=== PATIENT | male | born 1975 | race Caucasian/White ===

== ENCOUNTER 2020-04-06 10:42 | Emergency (ER) | payer MEDICARE ==
[~2020-04-06] VITALS: Ht 175.3 cm; Wt 63.6 kg
[2020-04-06] MEDS ORDERED: iohexol 350MG/ML 100ml bottle IV ONE ×2 (11:12→14:34)
[2020-04-06] MEDS ORDERED: NO HOME MEDS (11:19)
--- NOTE | 2020-04-06 11:19 | NUR ---
Multiple attempts for IV access have been unsuccessful up to this point. chili maker will attempt again so CTA scan can be completed.
[2020-04-06 11:21] LABS: BASOPHILS % (AUTO) 0.7 % (0-1); EOSINOPHILS # (AUTO) 0.3 X10'3 (0-0.9); EOSINOPHILS % (AUTO) 5.1 % (0-6); HEMATOCRIT 46.7 % (42.0-52.0); HEMOGLOBIN 15.9 g/dl (14.0-17.9); LYMPHOCYTES # (AUTO) 1.9 X10'3 (1.1-4.8); LYMPHOCYTES % (AUTO) 38.5 % (21-51); MEAN CORPUSCULAR VOLUME 94.1 FL (78-98); MEAN PLATELET VOLUME 6.2 FL (7.4-10.4); MONOCYTES # (AUTO) 0.5 X10'3 (0-0.9); NEUTROPHILS # (AUTO) 2.2 X10'3 (1.8-7.7); NEUTROPHILS % (AUTO) 44.7 % (42-75); PLATELET COUNT 253 X10'3 (140-440); RED BLOOD COUNT 4.96 X10'6 (4.70-6.10)
[2020-04-06 11:30] LABS: PARTIAL THROMBOPLASTIN TIME 28 SECONDS (22-32)
[2020-04-06 11:31] LABS: ALANINE AMINOTRANSFERASE 22 U/L (12-78); ALBUMIN 4.2 G/DL (3.4-5.0); ALBUMIN/GLOBULIN RATIO 1.6 (1.1-1.5); ALKALINE PHOSPHATASE 55 IU/L (46-116); ANION GAP 9 (8-16); ASPARTATE AMINO TRANSFERASE 12 U/L (10-37); BILIRUBIN,TOTAL 0.7 MG/DL (0.1-1.0); BLOOD UREA NITROGEN 16 MG/DL (7-18); CALCIUM 8.8 MG/DL (8.5-10.1); CHLORIDE 102 MMOL/L (99-107); CREATININE 0.94 MG/DL (0.60-1.10); GLUCOSE 110 MG/DL (70-104); POTASSIUM 4.3 MMOL/L (3.5-5.1); SODIUM 137 MMOL/L (135-145); TOTAL CARBON DIOXIDE 26.2 MMOL/L (24-32); TOTAL PROTEIN 6.9 G/DL (6.4-8.2); eGFR 88 ML/MIN
--- NOTE | 2020-04-06 12:37 | NUR ---
PICC nurse started the IV access, pt is ready for CT scan.
[2020-04-06] MEDS ORDERED: normal saline 1000ML IV soln IVB ONE (14:20)
[2020-04-06 15:33] LABS: CLARITY,URINE SLIGHTLY CLOUDY (Clear); COLOR,URINE YELLOW (Yellow); GLUCOSE, URINE NEGATIVE (Neg); KETONES,URINE NEGATIVE (Neg); LEUKOCYTE ESTERASE ,URINE NEGATIVE (Neg); NITRITES, URINE NEGATIVE (Neg); OCCULT BLOOD,URINE NEGATIVE (Neg); PH,URINE 7.5 (4.8-8.0); PROTEIN,URINE NEGATIVE (Neg)
[2020-04-06 15:34] LABS: UA COLLECTION TYPE URINAL
[2020-04-06 15:38] LABS: AMORPHOUS PHOSPHATES 2+; BACTERIA,URINE NONE SEEN /HPF (Neg); MUCUS STRANDS NONE SEEN /LPF (Neg); RBC,URINE 0-2 /HPF (0-2); SQUAMOUS EPITHELIAL CELL,UR NONE SEEN /LPF (FEW); WBC,URINE NONE SEEN /HPF (0-4)
[2020-04-06 15:48] LABS: URINE AMPHETAMINE SCREEN POSITIVE (Neg); URINE BARBITUATE SCREEN NEGATIVE (Neg); URINE BENZODIAZEPINES SCREEN NEGATIVE (Neg); URINE CANNABINOID SCREEN NEGATIVE (Neg); URINE COCAINE SCREEN NEGATIVE (Neg); URINE METHADONE SCREEN NEGATIVE (Neg); URINE OPIATE SCREEN NEGATIVE (Neg); URINE PHENCYCLIDINE SCREEN NEGATIVE (Neg)
[2020-04-06 15:50] VITALS: BP 131/91
== END 2020-04-06 16:58 | disposition home or self-care (01) ==
LOC: ER 10:43
DX: R42 Dizziness and giddiness (principal); R07.89 Other chest pain; H02.87 Vascular anomalies of eyelid; G89.29 Other chronic pain; Z88.0 Allergy status to penicillin
CPT/HCPCS: 36415; 70496; 70498; 71045; 71275; 76937; 80053; 80305; 81001; 82948; 85025; 85610; 85730; 86885; 86900; 86901; 93005; 93880; 96360; 99285; J7030; Q9967

== ENCOUNTER 2020-06-05 09:50 | Outpatient (CLI) | payer MEDICARE, MEDICAID ==
[2020-06-05] VITALS (18 sets, daily range): BP systolic 105–131; BP diastolic 64–96
[~2020-06-05 09:50] MED LIST: NO HOME MEDS
== END 2020-06-05 23:59 | disposition home or self-care (01) ==
LOC: CARD DIAG 09:50
PROVIDERS: ATTEND Internal Medicine Interventional Cardiology
DX: R42 Dizziness and giddiness (principal)
CPT/HCPCS: 93660

== ENCOUNTER → 2023-02-09 | Outpatient (CLI) | payer MEDICARE, MEDICAID ==
[2023-02-09] VITALS (8 sets, daily range): BP systolic 123–133; BP diastolic 83–96
[~2023-02-09] VITALS: Ht 175.3 cm; Wt 63.5 kg
[~2023-02-09] MED LIST changes: +aminophylline 250mg/10ml inj. IV PRN; +nitroGLYCERIN 0.4mg SUBLingual tab SL PRN; +normal saline 500ml IV soln 500 ML IV ONE; +regadenoson 0.4mg/5ml syringe IV ONE
== END | disposition home or self-care (01) ==
LOC: RAD 08:11
PROVIDERS: ATTEND Internal Medicine Interventional Cardiology
DX: R07.9 Chest pain, unspecified (principal)
CPT/HCPCS: 78451; 93017; A9500; J2785; J7040; J0280

== ENCOUNTER 2023-02-22 15:49 | Emergency (ER) | payer MEDICARE, MEDICAID ==
[~2023-02-22] VITALS: Ht 175.3 cm; Wt 68.2 kg
[~2023-02-22 15:49] MED LIST changes: -aminophylline 250mg/10ml inj. IV PRN; -nitroGLYCERIN 0.4mg SUBLingual tab SL PRN; -normal saline 500ml IV soln 500 ML IV ONE; -regadenoson 0.4mg/5ml syringe IV ONE
[2023-02-22 16:02] VITALS: BP 151/108
[2023-02-22] MEDS ORDERED: LIDOCAINE 2%/EPI 1:100,000 inj. Multi-dose 20 ML VIAL IJ ONE (16:35)
[2023-02-22] MEDS ORDERED: TETanus/Pertussis (Acell)/Diphther VAC/PF (Tdap-Adult) 0.5ml syringe IMVAC ONE (16:35)
[2023-02-22] MEDS ORDERED: DOXY100C76 PO (17:23)
[2023-02-22] MEDS ORDERED: CEPH250T PO (17:23)
== END 2023-02-22 17:47 | disposition home or self-care (01) ==
LOC: ER 15:50
DX: L02.11 Cutaneous abscess of neck (principal); G89.29 Other chronic pain; M54.9 Dorsalgia, unspecified
CPT/HCPCS: 10060; 90471; 90715; 99283; A6449